=== PATIENT | male | born 1960 | race Caucasian/White ===

== ENCOUNTER 2018-09-15 14:42 | Emergency (ER) | payer MEDICARE, OTHER ==
[~2018-09-15] VITALS: Ht 182.9 cm; Wt 73.5 kg
[2018-09-15 14:58] VITALS: BP 142/90
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
[2018-09-15] MEDS ORDERED: SILVER NITRATE STICK TP ONE (15:51)
== END 2018-09-15 16:02 | disposition home or self-care (01) ==
LOC: ER 14:42
DX: M25.572 Pain in left ankle and joints of left foot (principal); F17.210 Nicotine dependence, cigarettes, uncomplicated; Z91.041 Radiographic dye allergy status; Z88.7 Allergy status to serum and vaccine; Z88.6 Allergy status to analgesic agent; Z88.1 Allergy status to other antibiotic agents; Z88.8 Allergy status to other drugs, medicaments and biological substances; Z91.018 Allergy to other foods
CPT/HCPCS: 73610; 99284

== ENCOUNTER 2019-02-06 15:23 | Emergency (ER) | payer OTHER ==
[~2019-02-06] VITALS: Ht 180.3 cm; Wt 72.6 kg
[2019-02-06] MEDS ORDERED: IV NORMAL SALINE 1000ML BAG 1,000 ML IV SCH (16:30)
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
[2019-02-06 16:53] LABS: BASO # 0.1 x10^3/uL (0.0-0.2); BASO % 1 % (0-3); EOS # 0.3 x10^3/uL (0.0-0.7); EOS % 4 % (0-3); HEMATOCRIT 35.5 % (39.0-53.0); HEMOGLOBIN 11.9 g/dL (13.0-17.5); LYMPH # 1.7 x10^3/uL (1.0-4.8); LYMPH % 21 % (24-48); MEAN CORPUSCULAR HEMOGLOBIN 32 pg (25-35); MEAN CORPUSCULAR HGB CONC 34 g/dL (31-37); MEAN CORPUSCULAR VOLUME 95 fL (79-100); MONO # 0.8 x10^3/uL (0.0-1.1); MONO % 10 % (0-9); NEUT # 5.1 x10^3/uL (1.8-7.7); NEUT % 65 % (31-73); PLATELET COUNT 338 x10^3/uL (140-400); RED BLOOD COUNT 3.73 x10^6/uL (4.30-5.70); RED CELL DISTRIBUTION WIDTH 13.7 % (11.5-14.5); WHITE BLOOD COUNT 7.9 x10^3/uL (4.0-11.0)
--- NOTE | 2019-02-06 16:58 | RAD ---
EXAM: Chest, single view. HISTORY: Dizziness. COMPARISON: None. FINDINGS: A frontal view of the chest obtained. There is suspected chronic increased interstitial opacity. There is no consolidated, pleural effusion or pneumothorax. The heart is normal in size. There are surgical clips overlying the right paratracheal stripe. IMPRESSION: Suspected chronic interstitial changes. No consolidated infiltrate. Electronically signed by: Tess Mccormack MD (02/06/2019 4:55 PM) [place] [id number]
[2019-02-06] MEDS ORDERED: IPRATRPIUM/ALBUTEROL 0.5/2.5MG 3 ML NEBU. NEB ONE (17:00)
[2019-02-06] MEDS ORDERED: methylPREDNISolone SOD SUCC PF 125 MG/2 ML VIAL. IV ONE (17:00)
[2019-02-06 17:02] LABS: CALCIUM 8.8 mg/dL (8.5-10.1); CREATININE 0.8 mg/dL (0.7-1.3); GFR 98.6; POTASSIUM 4.2 mmol/L (3.5-5.1)
[2019-02-06 17:03] LABS: PROTHROMBIN TIME PATIENT 13.3 SEC (11.7-14.0)
[2019-02-06 17:10] LABS: ALBUMIN 3.5 g/dL (3.4-5.0); ALBUMIN/GLOBULIN RATIO 1.1 (1.0-1.7); TOTAL BILIRUBIN 0.2 mg/dL (0.2-1.0); TOTAL PROTEIN 6.7 g/dL (6.4-8.2)
[2019-02-06 17:49] VITALS: BP 168/78
[2019-02-06] MEDS ORDERED: METH4TAB2 PO (17:53)
[2019-02-06] MEDS ORDERED: ALBU2.5V8 IH (17:53)
--- NOTE | 2019-02-07 07:32 | EKG ---
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
== END 2019-02-06 18:05 | disposition home or self-care (01) ==
LOC: ER 15:23
DX: R42 Dizziness and giddiness (principal); J44.9 Chronic obstructive pulmonary disease, unspecified; Z72.0 Tobacco use; Z71.6 Tobacco abuse counseling; I10 Essential (primary) hypertension; Z88.7 Allergy status to serum and vaccine; Z88.1 Allergy status to other antibiotic agents; Z88.6 Allergy status to analgesic agent; Z91.041 Radiographic dye allergy status; Z88.8 Allergy status to other drugs, medicaments and biological substances; Z91.018 Allergy to other foods
CPT/HCPCS: 36415; 71045; 80053; 82550; 83605; 83690; 83735; 83880; 84484; 85025; 85610; 93005; 94640; 96361; 96374; 99285; J2930; J7030; J7620

== ENCOUNTER → 2019-02-20 | Outpatient (CLI) | payer OTHER ==
[2019-02-06 17:49] VITALS: BP 168/78
[~2019-02-20] MED LIST: ACET-704 PO; ACET500T68 PO; ALBU2.5V8 IH; ASPI325T8 PO; IOHEXOL 180 MG/ML 10 ML VIAL. ONE; LEVE500T21 PO; LEVE750T23 PO; LISI-334 PO; LORA10TA55 PO; METH4TAB2 PO; MULT-735 PO; OXYC5CAP PO; POLY2500 PO; PREG150C PO; methylPREDNISolone ACETATE 40 MG/ML VIAL. ONE; methylPREDNISolone ACETATE 80 MG/ML VIAL. ONE
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
== END ==
LOC: PNCL 09:30
PROVIDERS: ATTEND Anesthesiology
DX: M51.16 Intervertebral disc disorders with radiculopathy, lumbar region (principal); J44.9 Chronic obstructive pulmonary disease, unspecified; I10 Essential (primary) hypertension; F17.210 Nicotine dependence, cigarettes, uncomplicated; Z86.73 Personal history of transient ischemic attack (TIA), and cerebral infarction without residual deficits; Z98.890 Other specified postprocedural states; Z88.7 Allergy status to serum and vaccine; Z88.8 Allergy status to other drugs, medicaments and biological substances; Z88.1 Allergy status to other antibiotic agents; Z91.041 Radiographic dye allergy status; Z72.89 Other problems related to lifestyle
CPT/HCPCS: 62323; J1030; J1040; Q9965

== ENCOUNTER → 2019-03-06 | Outpatient (CLI) | payer OTHER ==
[2019-03-05 09:24] VITALS: BP 161/79
[~2019-03-06] MED LIST changes: +BUDE10.2 IH; +HYDR-2763 PO; -IOHEXOL 180 MG/ML 10 ML VIAL. ONE; +METO25TA4 PO; +TIOT18CA IH; -methylPREDNISolone ACETATE 40 MG/ML VIAL. ONE; -methylPREDNISolone ACETATE 80 MG/ML VIAL. ONE
--- NOTE | 2019-03-06 11:31 | PAIN ---
DATE OF SERVICE: 03/06/2019 PROGRESS NOTE FOR PAIN CLINIC DIAGNOSES: 1. Lumbar radiculopathy with lumbar degenerative disk disease. 2. Cervical radiculopathy with cervical degenerative disk disease and post-cervical laminectomy syndrome. HISTORY OF PRESENT ILLNESS: The patient is a 58-year-old male who returns for followup status post lumbar epidural steroid injection x 1. The patient reports and I spoke with him on the phone about a week ago that the pain was actually increased after the injection in the low back, bilateral lower extremities, also pain in the base of the neck and left upper extremity greater than right, but present bilaterally. The patient reports still continued pain, 8 on a scale of 10 at its worst over the past week, 7 on average, 5 at its least and is a 7 today. The patient reports it is tight, shooting, tingling, burning, radiating, severe, on and off in intensity, keeps him awake from sleep at night, awakens him at least every 4 hours. Pain in the base of the neck, shoulders, upper extremities, low back, mid back and bilateral lower extremities. The patient was recently hospitalized for a small-bowel obstruction, which resolved without intervention or nasogastric tube. The patient was discharged from the hospital yesterday and returns now reporting that he is having significant pain in those areas as mentioned. The patient reports no new motor or sensory deficits, no new bowel or bladder incontinence or other complaints other than his recent hospitalization. PHYSICAL EXAMINATION: VITAL SIGNS: The patient's blood pressure 170/102, pulse 60, respirations 18, temperature 97.9 degrees Fahrenheit, height is 5 feet 11 inches, weight is 160 pounds. GENERAL: The patient is awake, alert, oriented, appropriate, very pleasant demeanor. HEENT: Shows normocephalic, atraumatic. The patient wears eye glasses. Extraocular movements are intact and symmetrical. Oral cavity: Mucous membranes moist and pink. NECK: Shows anterior throat supple. CHEST: Shows normal on inspection. Breath sounds are clear bilaterally. HEART: Shows S1, S2 clear. No murmurs auscultated. ABDOMEN: Soft, nondistended. No organomegaly is noted. BACK: Shows spine grossly in the midline. Cervical paraspinous muscle shows symmetrical as is thoracic and lumbar paraspinous muscles. Significant tenderness throughout the upper, middle and lower distribution of the cervical paraspinous musculature diffusely as well as in the superior medial trapezius, more on the left than the right, but without trigger points, without radiation. The patient has good rotational motion of cervical spine, both laterally as well as extension and flexion. The patient's mid back shows some moderate tenderness diffusely with palpation, but without radiation, atrophy, hypertrophy or trigger points. Lumbar spine shows likewise upper, middle and lower distribution of paraspinous musculature diffusely tender without radiation or trigger points noted. The patient has good rotational motion of lumbar spine, both laterally greater than 10 degrees right and left as well as extension greater than 10 degrees, forward flexion 45 degrees without significant pain reported. EXTREMITIES: The patient's upper extremities show deep tendon reflexes at 2+ in the biceps, triceps tendons. The patient has well-healed surgical scar noted in the medial aspect of the right elbow and forearm. Motor exam is approximately 3 on a scale 5 on the right and 5/5 on left biologist aide strength. Lower extremities show deep tendon reflexes 1+ in the patellar and tendo-calcaneus tendons. The patient's peripheral pulses are 1+ posterior tibia, 2+ radial. No peripheral edema noted bilaterally. PLAN: Options were discussed with the patient. The patient's old chart was reviewed as his current medication regimen updated. Current review of systems updated today as well. The pain has actually worsened after epidural steroid injection. The patient is declining any further interventions at this time and is asking for refill of the patient's hydrocodone, also fentanyl patches which he had in the hospital apparently. We discussed this in detail that we do not prescribe controlled substances and are strictly interventional clinic only. The patient [facility], also recommend highly that he get another surgical opinion from a neurosurgeon regarding his C5-C6 cervical lesion to make sure there is nothing needs to be decompressed or which may progress and call if any further issues in the cervical spine. The patient will follow up this time on as needed basis only. CORTEZ LOPEZ MD DR: JACOB/aristeo JOB#: [id number] / [id number] live [address]
== END | disposition home or self-care (01) ==
LOC: PNCL 09:13
PROVIDERS: ATTEND Anesthesiology
DX: M51.16 Intervertebral disc disorders with radiculopathy, lumbar region (principal); M50.10 Cervical disc disorder with radiculopathy, unspecified cervical region; I10 Essential (primary) hypertension; F17.200 Nicotine dependence, unspecified, uncomplicated
CPT/HCPCS: G0463

== ENCOUNTER 2019-06-15 03:43 | Emergency (ER) | payer OTHER ==
[~2019-06-15] VITALS: Ht 180.3 cm; Wt 75.9 kg
[2019-06-15] MEDS ORDERED: IV NORMAL SALINE 1000ML BAG 1,000 ML IV SCH (04:05)
--- NOTE | 2019-06-15 04:12 | PHYS DOC ---
Past Medical History Past Medical History: Hypertension, Seizure, Other Additional Past Medical Histor: CRP, LESION ON SPLINAL CORD Past Surgical History: Knee Replacement Additional Past Surgical Histo: BOWEL RESECTION,RIGHT ARM, HERNIA REPAIR Smoking Status: Current Every Day Smoker Alcohol Use: Occasionally Drug Use: None Adult General Chief Complaint Chief Complaint: ABDOMINAL PAIN HPI HPI Patient is a 59 year old male who presents with complaint of acute onset of abdominal pain that woke him up at about 2:30 this morning. Patient states that pain is sharp and crampy and is quite severe. Patient states that he has had some nausea but no vomiting. He states that he is trying to have a bowel movement but couldn't. Patient states that pain is worsened with palpation. He states that nothing is improving his symptoms.[] Review of Systems Review of Systems Constitutional: Denies fever or chills [] Respiratory: Denies cough or shortness of breath [] Cardiovascular: No additional information not addressed in HPI [] GI: Complains of abdominal pain with nausea. Denies vomiting or diarrhea [] Integument: Denies rash or skin lesions [] Neurologic: Denies headache, focal weakness or sensory changes [] All other systems were reviewed and found to be within normal limits, except as documented in this note. Current Medications Current Medications Current Medications Medications (Trade) Dose Ordered Sig/Darcie Start Time Stop Time Status Last Admin Dose Admin Fentanyl Citrate (Fentanyl 2ml Vial) 50 mcg PRN Q15MIN PRN 06/15/19 04:15 06/16/19 04:14 06/15/19 05:54 50 MCG Info (CONTRAST GIVEN -- Rx MONITORING) 1 each PRN DAILY PRN 06/15/19 04:30 06/17/19 04:29 Iohexol (Omnipaque 300 Mg/ml) 75 ml 1X ONCE 06/15/19 05:00 06/15/19 05:01 DC 06/15/19 05:23 75 ML Ondansetron HCl (Zofran) 4 mg 1X ONCE 06/15/19 04:30 06/15/19 04:31 DC 06/15/19 04:33 4 MG Sodium Chloride 1,000 ml @ 1,000 mls/hr Q1H 06/15/19 04:05 06/15/19 05:04 DC 06/15/19 04:32 1,000 MLS/HR Allergies Allergies Allergies Coded Allergies Type Severity Reaction Last Updated Verified Wyzjgnz-All-Eik Reductase Inhibitor Allergy Intermediate 02/06/19 Yes Tetanus Vaccines and Toxoid Allergy Intermediate 02/06/19 Yes apricot Allergy Intermediate 02/06/19 Yes atorvastatin Allergy Intermediate 02/06/19 Yes carbamazepine Allergy Intermediate 02/06/19 No chlorpromazine Allergy Intermediate 02/06/19 Yes ketorolac Allergy Intermediate 02/06/19 Yes nalbuphine Allergy Intermediate 02/06/19 Yes pergolide Allergy Intermediate 02/06/19 Yes poliomyelitis vaccine, live oral Allergy Intermediate 02/06/19 Yes poliomyelitis vaccine,killed Allergy Intermediate 02/06/19 Yes terbutaline Allergy Intermediate 03/03/19 Yes testosterone Allergy Intermediate 02/06/19 Yes tizanidine Allergy Intermediate 02/06/19 Yes tromethamine Allergy Intermediate 02/06/19 Yes vancomycin Allergy Intermediate 02/06/19 Yes Physical Exam Physical Exam Constitutional: Well developed, well nourished, no acute distress, non-toxic appearance. [] HENT: Normocephalic, atraumatic, bilateral external ears normal, oropharynx abdifatah st, no oral exudates, nose normal. [] Eyes: PERRLA, EOMI, conjunctiva normal, no discharge. [] Neck: Normal range of motion, no tenderness, supple, no stridor. [] Cardiovascular: Regular rate and rhythm[] Lungs & Thorax: Bilateral breath sounds clear to auscultation [] Abdomen: Bowel sounds normal, soft, with moderate generalized tenderness. [] Skin: Warm, dry, no erythema, no rash. [] Extremities: No tenderness, no cyanosis, no clubbing, ROM intact. [] Neurologic: Alert and oriented X 3, no focal deficits noted. [] Current Patient Data Vital Signs Vital Signs Date Time Temp Pulse Resp B/P (MAP) Pulse Ox O2 Delivery O2 Flow Rate FiO2 06/15/19 05:54 17 99 Room Air 06/15/19 03:53 97.7 76 176/90 (118) 97.7 Lab Values Laboratory Tests Test 06/15/19 04:29 White Blood Count 11.5 x10^3/uL (4.0-11.0) H Red Blood Count 4.38 x10^6/uL (4.30-5.70) Hemoglobin 14.0 g/dL (13.0-17.5) Hematocrit 42.0 % (39.0-53.0) Mean Corpuscular Volume 96 fL (79-100) Mean Corpuscular Hemoglobin 32 pg (25-35) Mean Corpuscular Hemoglobin Concent 33 g/dL (31-37) Red Cell Distribution Width 14.3 % (11.5-14.5) Platelet Count 316 x10^3/uL (140-400) Neutrophils (%) (Auto) 71 % (31-73) Lymphocytes (%) (Auto) 16 % (24-48) L Monocytes (%) (Auto) 8 % (0-9) Eosinophils (%) (Auto) 4 % (0-3) H Basophils (%) (Auto) 1 % (0-3) Neutrophils # (Auto) 8.2 x10^3/uL (1.8-7.7) H Lymphocytes # (Auto) 1.8 x10^3/uL (1.0-4.8) Monocytes # (Auto) 0.9 x10^3/uL (0.0-1.1) Eosinophils # (Auto) 0.5 x10^3/uL (0.0-0.7) Basophils # (Auto) 0.1 x10^3/uL (0.0-0.2) Sodium Level 144 mmol/L (136-145) Potassium Level 3.9 mmol/L (3.5-5.1) Chloride Level 106 mmol/L (98-107) Carbon Dioxide Level 26 mmol/L (21-32) Anion Gap 12 (6-14) Blood Urea Nitrogen 18 mg/dL (8-26) Creatinine 0.8 mg/dL (0.7-1.3) Estimated GFR (Cockcroft-Gault) 98.3 BUN/Creatinine Ratio 23 (6-20) H Glucose Level 88 mg/dL (70-99) Calcium Level 8.9 mg/dL (8.5-10.1) Total Bilirubin 0.2 mg/dL (0.2-1.0) Aspartate Amino Transferase (AST) 20 U/L (15-37) Alanine Aminotransferase (ALT) 24 U/L (16-63) Alkaline Phosphatase 86 U/L (46-116) Total Protein 7.4 g/dL (6.4-8.2) Albumin 3.8 g/dL (3.4-5.0) Albumin/Globulin Ratio 1.1 (1.0-1.7) Lipase 99 U/L (73-393) Laboratory Tests 06/15/19 04:29 Laboratory Tests 06/15/19 04:29 EKG EKG [] Radiology/Procedures Radiology/Procedures [] Impressions: PROCEDURE: CT ABD PELV W/ IV CONTRST ONLY CT ABD PELV W/ IV CONTRST ONLY History: Abdominal pain Comparison: 03/03/2019 Technique: After administration of intravenous contrast, helical CT of the abdomen and pelvis was performed from the lung bases through the ischial tuberosities. Coronal and sagittal reconstructions were obtained. 75 mL of Omnipaque 350 were used. One or more of the following dose reduction techniques were utilized: Automated exposure control (AEC), Adjustment of mA and/or kV according to patient size, Use of iterative reconstruction technique such as ASiR, CT scan done according to ALARA and image gently/image wisely Abdomen Findings: The visualized lung bases are clear. The liver, gallbladder, pancreas, spleen, and bilateral adrenal glands are normal. Symmetric renal enhancement. There is no focal renal mass. There is no hydronephrosis. Distal small bowel anastomosis with mild dilated small bowel proximal to the anastomosis. Wall thickening of the terminal ileum. The visualized loops of large bowel are normal. There is no free fluid. There is no mesenteric or retroperitoneal adenopathy. The abdominal aorta is normal in caliber. Moderate aortoiliac atherosclerotic disease Pelvis Findings: Urinary bladder is normal. No pelvic free fluid. There is no pelvic or inguinal adenopathy. Degenerative changes spine. IMPRESSION: 1. Distal small bowel anastomosis with mild dilatation of small bowel proximal to the anastomotic site. This may represent postsurgical change or potentially a partial obstruction, although there is fluid and gas in the small and large bowel distal to the anastomosis. 2. Wall thickening of the terminal ileum, possibly representing an infectious or inflammatory enteritis. Electronically signed by: Arnoldo Barrera MD (06/15/2019 5:38 AM) [id number] DICTATED and SIGNED BY: ARNOLDO BARRERA MD DATE: 06/15/19 0538 Course & Med Decision Making Course & Med Decision Making Pertinent Labs and Imaging studies reviewed. (See chart for details) [] Dragon Disclaimer Dragon Disclaimer This electronic medical record was generated, in whole or in part, using a voice recognition dictation system. Departure Departure Impression: Primary Impression: SBO (small bowel obstruction) Disposition: 02 TRANSFER [facility] HOSP Condition: STABLE Referrals: UNKNOWN PCP NAME (PCP) ELIJAH SABILLON Jr. DO Jun 15, 2019 04:12
[2019-06-15] MEDS ORDERED: CONTRAST GIVEN. MC PRN (04:30)
[2019-06-15] MEDS ORDERED: ONDANSETRON PF 4 MG/2 ML VIAL. IVP ONE (04:30)
[2019-06-15] MEDS: fentaNYL PF VIAL 100 MCG/2 ML VIAL IV PRN ×3 (04:34→07:51)
[2019-06-15 04:47] LABS: BASO # 0.1 x10^3/uL (0.0-0.2); BASO % 1 % (0-3); EOS # 0.5 x10^3/uL (0.0-0.7); EOS % 4 % (0-3); LYMPH # 1.8 x10^3/uL (1.0-4.8); LYMPH % 16 % (24-48); MEAN CORPUSCULAR HEMOGLOBIN 32 pg (25-35); MEAN CORPUSCULAR HGB CONC 33 g/dL (31-37); MEAN CORPUSCULAR VOLUME 96 fL (79-100); MONO # 0.9 x10^3/uL (0.0-1.1); MONO % 8 % (0-9); NEUT # 8.2 x10^3/uL (1.8-7.7); NEUT % 71 % (31-73); PLATELET COUNT 316 x10^3/uL (140-400); RED BLOOD COUNT 4.38 x10^6/uL (4.30-5.70); RED CELL DISTRIBUTION WIDTH 14.3 % (11.5-14.5); WHITE BLOOD COUNT 11.5 x10^3/uL (4.0-11.0)
[2019-06-15 04:55] LABS: CALCIUM 8.9 mg/dL (8.5-10.1); CREATININE 0.8 mg/dL (0.7-1.3); GFR 98.3; POTASSIUM 3.9 mmol/L (3.5-5.1)
[2019-06-15 04:59] LABS: ALBUMIN 3.8 g/dL (3.4-5.0); ALBUMIN/GLOBULIN RATIO 1.1 (1.0-1.7); TOTAL BILIRUBIN 0.2 mg/dL (0.2-1.0); TOTAL PROTEIN 7.4 g/dL (6.4-8.2)
[2019-06-15] MEDS ORDERED: IOHEXOL 300 MG/ML 100ML VIAL. IV ONE (05:00)
--- NOTE | 2019-06-15 05:42 | RAD ---
CT ABD PELV W/ IV CONTRST ONLY History: Abdominal pain Comparison: 03/03/2019 Technique: After administration of intravenous contrast, helical CT of the abdomen and pelvis was performed from the lung bases through the ischial tuberosities. Coronal and sagittal reconstructions were obtained. 75 mL of Omnipaque 350 were used. One or more of the following dose reduction techniques were utilized: Automated exposure control (AEC), Adjustment of mA and/or kV according to patient size, Use of iterative reconstruction technique such as ASiR, CT scan done according to ALARA and image gently/image wisely Abdomen Findings: The visualized lung bases are clear. The liver, gallbladder, pancreas, spleen, and bilateral adrenal glands are normal. Symmetric renal enhancement. There is no focal renal mass. There is no hydronephrosis. Distal small bowel anastomosis with mild dilated small bowel proximal to the anastomosis. Wall thickening of the terminal ileum. The visualized loops of large bowel are normal. There is no free fluid. There is no mesenteric or retroperitoneal adenopathy. The abdominal aorta is normal in caliber. Moderate aortoiliac atherosclerotic disease Pelvis Findings: Urinary bladder is normal. No pelvic free fluid. There is no pelvic or inguinal adenopathy. Degenerative changes spine. IMPRESSION: 1. Distal small bowel anastomosis with mild dilatation of small bowel proximal to the anastomotic site. This may represent postsurgical change or potentially a partial obstruction, although there is fluid and gas in the small and large bowel distal to the anastomosis. 2. Wall thickening of the terminal ileum, possibly representing an infectious or inflammatory enteritis. Electronically signed by: Colt Rivera MD (06/15/2019 5:38 AM) [id number]
[2019-06-15] MEDS ORDERED: BENZOCAINE ONE 20% MUCOSAL SPRAY. (06:26)
[2019-06-15] MEDS ORDERED: BENZOCAINE ONE 20% MUCOSAL SPRAY. MM (06:30)
[2019-06-15 08:04] VITALS: BP 180/98
== END 2019-06-15 08:41 | disposition short-term general hospital (02) ==
LOC: ER 03:43
DX: K56.699 Other intestinal obstruction unspecified as to partial versus complete obstruction (principal); R10.9 Unspecified abdominal pain; R11.0 Nausea; I10 Essential (primary) hypertension; F17.200 Nicotine dependence, unspecified, uncomplicated; Z98.890 Other specified postprocedural states; Z88.5 Allergy status to narcotic agent; Z88.6 Allergy status to analgesic agent; Z88.1 Allergy status to other antibiotic agents; Z88.8 Allergy status to other drugs, medicaments and biological substances
CPT/HCPCS: 36415; 74177; 80053; 83690; 85025; 96374; 96375; 96376; 99285; J2405; J3010; J7030; Q9967

== ENCOUNTER 2019-06-21 21:23 | Emergency (ER) | payer OTHER ==
[~2019-06-21] VITALS: Ht 185.4 cm; Wt 75.0 kg
[2019-06-21 22:41] LABS: BASO # 0.1 x10^3/uL (0.0-0.2); BASO % 1 % (0-3); EOS # 0.7 x10^3/uL (0.0-0.7); EOS % 7 % (0-3); HEMATOCRIT 38.7 % (39.0-53.0); HEMOGLOBIN 13.3 g/dL (13.0-17.5); LYMPH # 2.2 x10^3/uL (1.0-4.8); LYMPH % 23 % (24-48); MEAN CORPUSCULAR HEMOGLOBIN 33 pg (25-35); MEAN CORPUSCULAR HGB CONC 34 g/dL (31-37); MEAN CORPUSCULAR VOLUME 96 fL (79-100); MONO # 0.9 x10^3/uL (0.0-1.1); MONO % 9 % (0-9); NEUT # 5.7 x10^3/uL (1.8-7.7); NEUT % 60 % (31-73); PLATELET COUNT 345 x10^3/uL (140-400); RED BLOOD COUNT 4.04 x10^6/uL (4.30-5.70); RED CELL DISTRIBUTION WIDTH 13.8 % (11.5-14.5); WHITE BLOOD COUNT 9.6 x10^3/uL (4.0-11.0)
[2019-06-21 22:58] LABS: CREATININE 0.8 mg/dL (0.7-1.3); GFR 98.3; POTASSIUM 4.2 mmol/L (3.5-5.1)
[2019-06-21 23:04] LABS: ALBUMIN 3.7 g/dL (3.4-5.0); ALBUMIN/GLOBULIN RATIO 1.2 (1.0-1.7); C-REACTIVE PROTEIN 11.7 mg/L (0-3.3); TOTAL BILIRUBIN 0.1 mg/dL (0.2-1.0); TOTAL PROTEIN 6.9 g/dL (6.4-8.2)
--- NOTE | 2019-06-21 23:16 | RAD ---
INDICATION: Redness and discoloration COMPARISON: None TECHNIQUE: Grayscale, color and doppler ultrasound images were obtained of the left upper extremity venous vasculature. No thrombus identified in the internal jugular, subclavian, axillary, brachial, basilic, radial or ulnar veins. Thrombus within the cephalic vein There is some edema in the soft tissues. IMPRESSION: 1. Thrombus is seen within the cephalic vein. Electronically signed by: Bossman uYng MD (06/21/2019 11:13 PM) [id number]
[2019-06-21] MEDS ORDERED: CEPH-264 PO (23:54)
--- NOTE | 2019-06-21 23:55 | PHYS DOC ---
Past Medical History Past Medical History: Hypertension, Seizure, Other Additional Past Medical Histor: CRP, LESION ON SPLINAL CORD Past Surgical History: Knee Replacement Additional Past Surgical Histo: BOWEL RESECTION,RIGHT ARM, HERNIA REPAIR Smoking Status: Current Every Day Smoker Alcohol Use: Heavy Drug Use: None Adult General Chief Complaint Chief Complaint: UPPER EXTREMITY PAIN [facility] HPI Patient is a 59 year old male with history of hypertension, seizure, chronic reactive pain, recent hospitalization with diagnosis of small bowel obstruction who presents with complaining of problem with IV line site. Patient states he was seen in this emergency room in June 14 and transfer to [facility] with diagnosis of a small bowel obstruction that was treated medically and discharged home 3 days ago. Patient complaining of several area of pain and change of color in left upper extremity that gradually getting worse. Patient denies fever and chills, nausea and vomiting, focal neuro deficit. Patient states this time he moves his finger feels shocking feeling in his left fingers. Patient states he had right arm MRSA infection and several surgeies long time ago and has concern for having the same problem in left arm. Review of Systems Review of Systems Constitutional: Denies fever or chills [] Eyes: Denies change in visual acuity, redness, or eye pain [] HENT: Denies nasal congestion or sore throat [] Respiratory: Denies cough or shortness of breath [] Cardiovascular: No additional information not addressed in HPI [] GI: Denies abdominal pain, nausea, vomiting, bloody stools or diarrhea [] : Denies dysuria or hematuria [] Musculoskeletal: Denies back pain or joint pain [] Integument: Denies rash, reports skin lesions [] Neurologic: Denies headache, focal weakness or sensory changes [] Endocrine: Denies polyuria or polydipsia [] All other systems were reviewed and found to be within normal limits, except as documented in this note. Current Medications Current Medications Current Medications Medications (Trade) Dose Ordered Sig/Darcie Start Time Stop Time Status Last Admin Dose Admin Cefazolin Sodium/ Dextrose 50 ml @ 100 mls/hr 1X ONCE 06/21/19 23:30 06/21/19 23:59 Allergies Allergies Allergies Coded Allergies Type Severity Reaction Last Updated Verified Ghplror-Ydn-Hko Reductase Inhibitor Allergy Intermediate 02/06/19 Yes Tetanus Vaccines and Toxoid Allergy Intermediate 02/06/19 Yes apricot Allergy Intermediate 02/06/19 Yes atorvastatin Allergy Intermediate 02/06/19 Yes carbamazepine Allergy Intermediate 02/06/19 No chlorpromazine Allergy Intermediate 02/06/19 Yes ketorolac Allergy Intermediate 02/06/19 Yes nalbuphine Allergy Intermediate 02/06/19 Yes pergolide Allergy Intermediate 02/06/19 Yes poliomyelitis vaccine, live oral Allergy Intermediate 02/06/19 Yes poliomyelitis vaccine,killed Allergy Intermediate 02/06/19 Yes terbutaline Allergy Intermediate 03/03/19 Yes testosterone Allergy Intermediate 02/06/19 Yes tizanidine Allergy Intermediate 02/06/19 Yes tromethamine Allergy Intermediate 02/06/19 Yes vancomycin Allergy Intermediate 02/06/19 Yes Physical Exam Physical Exam Constitutional: Well developed, well nourished, mild distress, non-toxic appearance. [] HENT: Normocephalic, atraumatic. Eyes: PERRLA, EOMI, conjunctiva normal, no discharge. [] Neck: Normal range of motion, no tenderness, supple, no stridor. [] Cardiovascular:Heart rate regular rhythm, no murmur [] Lungs & Thorax: Bilateral breath sounds clear to auscultation [] Skin: Several areas of ecchymosis and contusion of left upper extremity, large area of ecchymosis and contusion of left mid arm week tenderness and edema Back: No tenderness, no CVA tenderness. [] Extremities: Left upper extremity contusion in IV line area with large 10x5 cm area of edema and tenderness of arm no cyanosis, no clubbing, ROM intact. Neurologic: Alert and oriented X 3, no focal deficits noted. [] Psychologic: Affect normal, judgement normal, mood normal. [] Current Patient Data Vital Signs Vital Signs Date Time Temp Pulse Resp B/P (MAP) Pulse Ox O2 Delivery O2 Flow Rate FiO2 06/21/19 21:30 97.6 62 18 152/83 (106) 99 Room Air 97.6 Lab Values Laboratory Tests Test 06/21/19 22:29 White Blood Count 9.6 x10^3/uL (4.0-11.0) Red Blood Count 4.04 x10^6/uL (4.30-5.70) L Hemoglobin 13.3 g/dL (13.0-17.5) Hematocrit 38.7 % (39.0-53.0) L Mean Corpuscular Volume 96 fL (79-100) Mean Corpuscular Hemoglobin 33 pg (25-35) Mean Corpuscular Hemoglobin Concent 34 g/dL (31-37) Red Cell Distribution Width 13.8 % (11.5-14.5) Platelet Count 345 x10^3/uL (140-400) Neutrophils (%) (Auto) 60 % (31-73) Lymphocytes (%) (Auto) 23 % (24-48) L Monocytes (%) (Auto) 9 % (0-9) Eosinophils (%) (Auto) 7 % (0-3) H Basophils (%) (Auto) 1 % (0-3) Neutrophils # (Auto) 5.7 x10^3/uL (1.8-7.7) Lymphocytes # (Auto) 2.2 x10^3/uL (1.0-4.8) Monocytes # (Auto) 0.9 x10^3/uL (0.0-1.1) Eosinophils # (Auto) 0.7 x10^3/uL (0.0-0.7) Basophils # (Auto) 0.1 x10^3/uL (0.0-0.2) Erythrocyte Sedimentation Rate 20 (0-15) H Sodium Level 141 mmol/L (136-145) Potassium Level 4.2 mmol/L (3.5-5.1) Chloride Level 105 mmol/L (98-107) Carbon Dioxide Level 27 mmol/L (21-32) Anion Gap 9 (6-14) Blood Urea Nitrogen 18 mg/dL (8-26) Creatinine 0.8 mg/dL (0.7-1.3) Estimated GFR (Cockcroft-Gault) 98.3 BUN/Creatinine Ratio 23 (6-20) H Glucose Level 93 mg/dL (70-99) Lactic Acid Level 1.0 mmol/L (0.4-2.0) Calcium Level 9.0 mg/dL (8.5-10.1) Total Bilirubin 0.1 mg/dL (0.2-1.0) L Aspartate Amino Transferase (AST) 23 U/L (15-37) Alanine Aminotransferase (ALT) 25 U/L (16-63) Alkaline Phosphatase 85 U/L (46-116) C-Reactive Protein, Quantitative 11.7 mg/L (0-3.3) H Total Protein 6.9 g/dL (6.4-8.2) Albumin 3.7 g/dL (3.4-5.0) Albumin/Globulin Ratio 1.2 (1.0-1.7) Laboratory Tests 06/21/19 22:29 Laboratory Tests 06/21/19 22:29 EKG EKG [] Radiology/Procedures Radiology/Procedures [facility] [address] [place] [address] IMAGING REPORT Signed PATIENT: FERNANDA BARRY ACCOUNT: [id number] : 1960 LOCATION: ER AGE: 59 SEX: M EXAM STATUS: REG ER ORD. PHYSICIAN: ANIL DAY MD REASON: Possible of abscess or cellulitis of left upper extremity after IV line ins PROCEDURE: VENOUS UPPER EXTREMITY LEFT INDICATION: Redness and discoloration COMPARISON: None TECHNIQUE: Grayscale, color and doppler ultrasound images were obtained of the left upper extremity venous vasculature. No thrombus identified in the internal jugular, subclavian, axillary, brachial, basilic, radial or ulnar veins. Thrombus within the cephalic vein There is some edema in the soft tissues. IMPRESSION: 1. Thrombus is seen within the cephalic vein. Electronically signed by: Daniel Fitzpatrick MD (06/21/2019 11:13 PM) [id number] DICTATED and SIGNED BY: DANIEL FITZPATRICK MD DATE: 06/21/19 2313 Course & Med Decision Making Course & Med Decision Making Pertinent Labs and Imaging studies reviewed. (See chart for details) Evaluation of patient ER showed 59-year-old male patient with recent hospitalization and several area of IV line placement in left upper extremity with contusion and tenderness and edema. Patient was concerned for possible MRSA infection like his previous right hand problem. Patient did not have leukocytosis, elevation of lactic acid, fever, focal neuro deficit. Ultrasound showed superficial thrombosis of cephalic vein in the area of IV line. Patient treated with Ancef in ER and prescription for Keflex was given and was advised to apply moist warm packs on the affected area and follow-up with his primary care physician at [facility]. I've spoken with the patient and/or caregivers. I've explained the patient's condition, diagnosis and treatment plan based on information available to me at this time. I've answered the patient's and/or caregivers questions and addressed any concerns. The patient and/or caregivers have a good understanding the patient's diagnosis, condition and treatment plan as can be expected at this point. Vital signs have been stabilized. The patient's condition is stable for discharge from the emergency department. The patient will pursue further outpatient evaluation with her primary care provider or other designated consulting physician as outlined in the discharge instructions. Patient and/or caregivers are agreeable to this plan of care and follow-up instructions have been explained in detail. The patient and/or caregivers have received these instructions in written format and expressed understanding of these discharge instructions. The patient and her caregivers are aware that if any significant change in condition or worsening of symptoms should prompt him to immediately return to this of the closest emergency department. If an emergent department is not readily available I would encourage him to call 911. Timo Disclaimer Dragon Disclaimer This electronic medical record was generated, in whole or in part, using a voice recognition dictation system. Departure Departure Impression: Primary Impression: Thrombosed vein secondary to IV placement Additional Impression: Cephalic vein thrombosis, left Disposition: HOME, SELF-CARE (At 2351) Condition: STABLE Referrals: UNKNOWN PCP NAME (PCP) Patient Instructions: Cellulitis Additional Instructions: Apply warm moist pad on left arm and affected area Follow-up with your primary care physician in 2-3 days for evaluation of superficial vein thrombosis Return to ER if not getting better Continue home ibuprofen Thank you for visiting . We appreciate you trusting us with your care. If any additional problems come up don't hesitate to return to visit us. Please follow up with your primary care provider so they can plan additional care if needed and know about the problem that you had. If symptoms worsen come back to the Emergency Department. Any concerning symptoms that start such as chest pain, shortness of air, weakness or numbness on one side of the body, running high fevers or any other concerning symptoms return to the ER. Scripts Cephalexin (KEFLEX) 500 Mg Capsule 2 CAP PO Q12HR, #40 CAP Prov: ANIL DAY MD 06/21/19 Problem Qualifiers Primary Impression: Thrombosed vein secondary to IV placement Encounter type: initial encounter Qualified Codes: T80.1XXA - Vascular complications following infusion, transfusion and therapeutic injection, initial encounter; I82.90 - Acute embolism and thrombosis of unspecified vein ANIL DAY MD Jun 21, 2019 23:55
[2019-06-22 00:20] VITALS: BP 154/77
== END 2019-06-22 00:23 | disposition home or self-care (01) ==
LOC: ER 21:23
DX: I82.612 Acute embolism and thrombosis of superficial veins of left upper extremity (principal); I10 Essential (primary) hypertension; F17.200 Nicotine dependence, unspecified, uncomplicated; F12.90 Cannabis use, unspecified, uncomplicated; Z98.890 Other specified postprocedural states; Z88.4 Allergy status to anesthetic agent; Z88.7 Allergy status to serum and vaccine; Z88.5 Allergy status to narcotic agent; Z88.6 Allergy status to analgesic agent; Z88.1 Allergy status to other antibiotic agents; Z88.8 Allergy status to other drugs, medicaments and biological substances
CPT/HCPCS: 36415; 80053; 83605; 85025; 85651; 86140; 87040; 93971; 96365; 99284; J0696